=== PATIENT | male | born 1955 | race Caucasian/White ===

== ENCOUNTER → 2018-04-22 | Outpatient (CLI) | payer OTHER ==
--- NOTE | 2018-04-22 09:01 | Diagnostic Imaging Report ---
MRI of the left shoulder without contrast. History: Shoulder pain. Trauma. Decreased range of motion. Rotator cuff tear. Comparison: None Technique: Coronal PD FS, sagital PD FS, and axial PD and PD FS. Findings: Rotator cuff: There is rotator cuff tendinosis with a full-thickness tear involving the supraspinatus and infraspinatus tendons at the humeral insertion site. There is retraction of the torn fibers to the level of the glenoid. There is moderate muscle atrophy. Additionally, there is subscapularis tendinosis with articular sided fraying. The teres minor tendon is intact. Osseous acromion complex: There is a type II acromion with mild lateral downsloping. There is an os acromiale best seen on axial series 2 image 6. There is moderate degenerative arthrosis at the acromioclavicular joint with undersurface spurring and narrowing of the supraspinatus tendon outlet. There is subacromial/subdeltoid bursitis. Glenohumeral joint: There is degenerative type tearing of the labrum. There is a glenohumeral joint effusion and synovitis extending anteriorly into the rotator interval and subcoracoid space. The articular cartilage surfaces are slightly thin. Biceps tendon: There is intra-articular biceps tendinosis with partial tearing at the biceps anchor. Other findings: Negative for muscle denervation or osseous fracture. Impression: Rotator cuff tendinosis with full-thickness tear, retraction and muscle atrophy as described above. Intra-articular biceps tendinosis with partial tearing at the biceps anchor. Glenohumeral joint effusion and synovitis extending anteriorly into the rotator interval and subcoracoid space. 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 Signed by: Dr. Josafat Joseph M.D. on 04/22/2018 8:58 AM
== END ==
LOC: MRI 07:02
PROVIDERS: ATTEND Family Medicine
DX: S46.012D Strain of muscle(s) and tendon(s) of the rotator cuff of left shoulder, subsequent encounter (principal)